=== PATIENT | male | born 1965 | race Caucasian/White ===

== ENCOUNTER 2017-03-31 08:50 | Emergency (ER) | payer BC, OTHER ==
[2017-03-31 09:10] VITALS: BP 169/97
--- NOTE | 2017-03-31 10:20 | UC ---
Abdominal Pain Male HPI - HPI Summary HPI Summary: abdominal pain x 1 day feels bloated, ate a lot last night, no fever, no chills, no n/v/d/c - History of Current Complaint Chief Complaint: UCAbdominalPain Stated Complaint: STOMACH ACHE Time Seen by Provider: 03/31/17 09:24 Hx Obtained From: Patient Onset/Duration: Gradual Onset, Lasting Days Severity Initially: Moderate Severity Currently: Moderate Location: Diffuse Radiates: No Character: Aching, Cramping Alleviating Factor(s): Nothing Associated Signs And Symptoms: Negative: Fever, Cough, Chest Pain, Blood in Stool, Urinary Symptoms, Decreased Appetite, Nausea, Vomiting, Diarrhea, Penile Discharge - Allergies/Home Medications Allergies/Adverse Reactions: Allergies Allergy/AdvReac Type Severity Reaction Status Date / Time No Known Allergies Allergy Verified 03/31/17 09:04 Home Medications: Home Medications Calcium Carbonate CHEW TAB* [Tums*] 2,000 mg PO ONCE PRN 03/31/17 [History Confirmed 03/31/17] Senna TAB* [Senokot TAB*] 2 tab PO ONCE PRN 03/31/17 [History Confirmed 03/31/17 ] PMH/Surg Hx/FS Hx/Imm Hx Previously Healthy: Yes - Surgical History Surgical History: None - Family History Known Family History: Negative: Diabetes - Social History Alcohol Use: Occasionally Substance Use Type: None Smoking Status (MU): Former Smoker When Did the Patient Quit Smoking/Using Tobacco: 2000 Review of Systems Constitutional: Negative Skin: Negative Eyes: Negative ENT: Negative Respiratory: Negative Gastrointestinal: Abdominal Pain Is Patient Immunocompromised?: No All Other Systems Reviewed And Are Negative: Yes Physical Exam Triage Information Reviewed: Yes Appearance: Well-Appearing, No Pain Distress, Well-Nourished Vital Signs: Initial Vital Signs Temp 97.4 F 03/31/17 09:06 Pulse 82 03/31/17 09:06 Resp 16 03/31/17 09:06 BP 169/97 03/31/17 09:06 Pulse Ox 98 03/31/17 09:06 Vital Signs Reviewed: Yes Eyes: Positive: Conjunctiva Clear ENT: Positive: Normal ENT inspection, Hearing grossly normal, Pharynx normal Neck: Positive: Supple, Nontender, No Lymphadenopathy Respiratory: Positive: Chest non-tender, Lungs clear, Normal breath sounds Cardiovascular: Positive: RRR, No Murmur, Pulses Normal Abdomen Description: Positive: Soft, Other: - diffuse tenderness. Negative: CVA Tenderness (R), CVA Tenderness (L), Distended, Guarding Musculoskeletal: Positive: Strength Intact Neurological: Positive: Alert Skin Exam: Normal Abd Pain Male Course/Dx - Differential Dx/Clinical Impression Provider Diagnoses: gastritis Discharge - Discharge Plan Condition: Stable Disposition: HOME Patient Education Materials: Acute Abdominal Pain (ED), Gas and Bloating (ED) Referrals: Non Staff,Doctor [Primary Care Provider] - 5 Days Additional Instructions: follow up with your pcp in 5 days j go to ED if the pain is getting worse
== END 2017-03-31 10:33 | disposition home or self-care (01) ==
LOC: UCCORT 08:50
DX: K29.70 Gastritis, unspecified, without bleeding (principal); Z87.891 Personal history of nicotine dependence
CPT/HCPCS: 81003; 93005; 99211; G0463

== ENCOUNTER 2017-09-16 16:47 | Emergency (ER) | payer BC ==
[2017-09-16 17:43] VITALS: BP 134/89
--- NOTE | 2017-09-16 17:47 | ED ---
Abdominal Pain/Male - HPI Summary HPI Summary: Pt presents with 2-3 weeks progressive nausea, vomiting and diarrhea. Pt states has abdominal cramping and bloating. Pt states over last several days has noted blood in emesis. non bilous. Pt states also notes stool have progressively become mucous with blood streaking. Pt states has had 20 pound weight loss, abd achiness and back pain. No cp,sob/. Pt has taken tums and pepto without relief. no sick contact. no h/o similar. no travel. no abx Pt's sister with crohn's dx pt does use THC -no change in supplier, no concern for contamination pt had normal colonoscopy 3 years ago pt with no PCP - History of Current Complaint Chief Complaint: UCAbdominalPain Stated Complaint: ABD PAIN/NAUSEA Time Seen by Provider: 09/16/17 17:33 Onset/Duration: Lasting Weeks Timing: Constant Severity Initially: Moderate Severity Currently: Moderate Pain Intensity: 6 - Allergies/Home Medications Allergies/Adverse Reactions: Allergies Allergy/AdvReac Type Severity Reaction Status Date / Time No Known Allergies Allergy Verified 09/16/17 17:28 Home Medications: Home Medications NK [No Home Medications Reported] 09/16/17 [History Confirmed 09/16/17] PMH/Surg Hx/FS Hx/Imm Hx Previously Healthy: Yes Infectious Disease History: No Infectious Disease History: Denies: Traveled Outside the [place] in Last 30 Days - Family History Known Family History: Positive: Hypertension Negative: Diabetes - Social History Occupation: Employed Full-time Lives: With Family Alcohol Use: Occasionally Substance Use Type: Reports: Marijuana Substance Use Comment - Amount & Last Used: OCCASIONALLY- 3 DAYS AGO Smoking Status (MU): Former Smoker Review of Systems Positive: Chills, Fatigue Negative: Chest Pain Negative: Shortness Of Breath Positive: Abdominal Pain, Vomiting, Diarrhea, Nausea All Other Systems Reviewed And Are Negative: Yes Physical Exam Triage Information Reviewed: Yes Vital Signs On Initial Exam: Initial Vitals Temp Pulse Resp BP Pulse Ox 97.5 F 64 16 134/89 98 09/16/17 17:28 09/16/17 17:28 09/16/17 17:28 09/16/17 17:28 09/16/17 17:28 Vital Signs Reviewed: Yes Appearance: Positive: Well-Appearing, No Pain Distress, Well-Nourished Skin: Positive: Warm, Skin Color Reflects Adequate Perfusion, Dry Head/Face: Positive: Normal Head/Face Inspection Eyes: Positive: Normal, EOMI, NAZIA ENT: Positive: Pharyngeal erythema, TMs normal Neck: Positive: Supple, Nontender, No Lymphadenopathy Respiratory/Lung Sounds: Positive: Clear to Auscultation, Breath Sounds Present Cardiovascular: Positive: Normal, RRR. Negative: Murmur Abdomen Description: Positive: CVA Tenderness (R), CVA Tenderness (L). Negative : Nontender - + TTP LLQ, left mid mild b/l CVA, Distended, Guarding Bowel Sounds: Positive: Hypoactive Musculoskeletal: Positive: Normal Neurological: Positive: Normal, Sensory/Motor Intact, Alert, Oriented to Person Place, Time Psychiatric: Positive: Normal AVPU Assessment: Alert Diagnostics - Vital Signs Vital Signs Temp Pulse Resp BP Pulse Ox 09/16/17 17:28 97.5 F 64 16 134/89 98 - Laboratory Lab Statement: Any lab studies that have been ordered have been reviewed, and results considered in the medical decision making process. Abdominal Pain Fem Course/Dx - Course Course Of Treatment: pt with progressive n/v/d now with blood. pt with significant weight loss. sister with crohn's. Pt with tender LLQ , left mid abd. pt without PCP. recommend pt to ED for further eval likely labs +/- imaging. Pt aware may not get definitve dx today. pt will go to [facility] – [place]. pt stable - okay for transfer by car. pt discharge with ED referral. Charge called by RN - Diagnoses Provider Diagnoses: Abdominal pain, Diarrhea, Vomiting Discharge - Sign-Out/Discharge Documenting (check all that apply): Discharge - Discharge Plan Condition: Stable Disposition: HOME Discharge Disposition Comment: ED by POV - referral Patient Education Materials: Acute Abdominal Pain (ED) Referrals: Non Staff,Doctor [Primary Care Provider] - Additional Instructions: The doctor that evaluated you today recommends you go directly to the emergency department for further evaluation and treatment of your nausea, vomiting and weight loss. this evaluation may include laboratory tests and imaging. It is recommended you do directly there - they are expecting you [place] [address] [place] [id number] - Billing Disposition and Condition Condition: STABLE Disposition: HOME
== END 2017-09-16 18:16 | disposition home or self-care (01) ==
LOC: UCCORT 16:47
DX: R10.32 Left lower quadrant pain (principal); R19.7 Diarrhea, unspecified; R11.2 Nausea with vomiting, unspecified; Z87.891 Personal history of nicotine dependence
CPT/HCPCS: 93005; 99212; G0463

== ENCOUNTER 2017-09-16 19:00 | Emergency (ER) | payer BC ==
[2017-09-16] MEDS ORDERED: NS 0.9% 1000 ML* 1,000 ML IV ONE (20:08)
[2017-09-16] MEDS ORDERED: Morphine INJ* 4 MG/ML 1 ML SYRINGE (NEW SYRINGE VERSION) IV ONE (20:09)
[2017-09-16] MEDS ORDERED: Metoclopramide IV* 5 MG/ML 2 ML VIAL IV SLOW PU ONE (20:09)
[2017-09-16] MEDS ORDERED: Morphine INJ* 2 MG/ML 1 ML CARPUJECT ONE (20:30)
[2017-09-16 20:37] LABS: ABS Basophils 0 10^3/ul (0-0.2); ABS Eosinophils 0.1 10^3/ul (0-0.6); ABS Monocytes 0.7 10^3/ul (0-0.8); ABS Neutrophils 4.3 10^3/ul (1.5-7.7); ABS Nucleated RBC 0 10^3/ul; Eosinophil % 0.9 % (0-6); Hematocrit 42 % (42-52); Hemoglobin 15.1 g/dl (14.0-18.0); Lymphocyte % 28.2 % (25-47); Mean Corpuscular HGB Conc 36 g/dl (31-36); Mean Corpuscular Hemoglobin 30 pg (27-31); Mean Corpuscular Volume 83 fL (80-94); Mean Platelet Volume 7.1 um3 (7.4-10.4); Nucleated Red Blood Cells % 0.1; Platelet Count 249 10^3/ul (150-450); Red Blood Count 5.07 10^6/ul (4.0-5.4); Red Cell Distribution Width 14 % (10.5-15)
[2017-09-16 20:46] LABS: INR 1.01 (0.77-1.02)
[2017-09-16 20:54] LABS: EGFR Non-African American 87.8 (>60)
[2017-09-16] MEDS ORDERED: Iohexol 300* (CONTRAST) 10 ML SDV IV ONE (21:11)
--- NOTE | 2017-09-16 22:00 | RAD ---
INDICATION: Abdominal pain and diarrhea for one week. COMPARISON: No relevant prior exams available on the [facility] PACS for comparison. TECHNIQUE: Multidetector CT images were obtained from the lung bases to the ischial tuberosities with 137 mL Omnipaque 300 IV and oral contrast. Multiplanar reformation. REPORT: Unremarkable visualized inferior thorax. The liver, gallbladder, pancreas, and spleen are unremarkable. Small splenule adjacent to the inferior anterior lateral margin of the dominant spleen. No CT abnormality of the upper GI or small bowel. Unremarkable top normal diameter medially extending appendix. Negative for periappendiceal inflammatory change. Mild diverticulosis of the colon without findings of acute diverticulitis. Negative for ascites, free air, or significant hernias. Normal adrenal glands. Symmetric nephrograms and pyelograms. Tiny hypodensity at the lower pole cortex of the RIGHT kidney while too small to characterize is most consistent with a benign cyst without concern. Negative for suspicious focal renal lesions or hydronephrosis. Unremarkable nondilated ureters and distended urinary bladder. Unremarkable seminal vesicles. Coarse calcifications at the prostate. Upper normal mesenteric lymph nodes measuring up to 0.7 cm short axis diameter. Negative for lymphadenopathy. Normal diameter abdominal aorta and common iliac arteries with minimal atherosclerotic plaque. Physiologic distention of the IVC. Schmorl node endplate herniation at the superior endplate of L3. Negative for suspicious focal osseous lesions or fractures. IMPRESSION: 1. Normal appendix documented. 2. Mild diverticulosis of the colon without findings of acute diverticulitis. 3. Distended urinary bladder; correlate clinically for urinary retention. Negative for hydronephrosis.
[2017-09-16 22:02] LABS: Urine Appearance Clear; Urine Blood Negative (Negative); Urine Color Yellow; Urine Ketones Negative (Negative); Urine Protein Negative (Negative); Urine Specific Gravity 1.028 (1.010-1.030); Urine Urobilinogen Negative (Negative)
[2017-09-16] MEDS ORDERED: Potassium Chlor TAB* 20 MEQ TAB.ER PO ONE (22:11)
[2017-09-16 22:58] VITALS: BP 143/93
--- NOTE | 2017-09-16 23:18 | ED ---
Dana Steele Nilda, scribed for Lyly Perez MD on 09/16/17 at 2026 . Abdominal Pain/Male - HPI Summary HPI Summary: This patient is a 51 year old M presenting to [facility] with a chief complaint of constant abd pain with bloody diarrhea and vomiting since last week. The patient rates the pain 4/10 in severity. Symptoms aggravated and alleviated by nothing. Patient reports a considerable amount of blood in stool, and states pain originated in bilat lower back but has now moved to lower abd. Triage note states pt denies urinary symptoms. - History of Current Complaint Chief Complaint: EDAbdPain Stated Complaint: ABD PAIN Time Seen by Provider: 09/16/17 19:53 Hx Obtained From: Patient, Medical Records Onset/Duration: Sudden Onset, Lasting Weeks, Still Present Timing: Constant Severity Currently: Moderate Pain Intensity: 4 Pain Scale Used: 0-10 Numeric Location: Discrete At: RLQ, Discrete At: LLQ Radiates: No Aggravating Factor(s): Nothing Alleviating Factor(s): Nothing Associated Signs And Symptoms: Positive: Other - bloody diarrhea and vomiting; negative urinary symptoms - Allergies/Home Medications Allergies/Adverse Reactions: Allergies Allergy/AdvReac Type Severity Reaction Status Date / Time No Known Allergies Allergy Verified 09/16/17 19:04 PMH/Surg Hx/FS Hx/Imm Hx Sensory History: Denies: Hx Legally Blind EENT History: Denies: Hx Deafness Infectious Disease History: No Infectious Disease History: Denies: Traveled Outside the [place] in Last 30 Days - Family History Known Family History: Positive: Hypertension Negative: Diabetes - Social History Alcohol Use: Occasionally Substance Use Type: Reports: Marijuana Substance Use Comment - Amount & Last Used: OCCASIONALLY- 3 DAYS AGO Smoking Status (MU): Former Smoker Review of Systems Positive: Abdominal Pain, Vomiting, Diarrhea - with blood Positive: other - negative urinary symptoms Positive: Other - lower back pain (resolved) All Other Systems Reviewed And Are Negative: Yes Physical Exam - Summary Physical Exam Summary: VITAL SIGNS: Reviewed. GENERAL: Patient is a well-developed and nourished male who is lying comfortable in the stretcher. Patient is not in any acute respiratory distress. HEAD AND FACE: No signs of trauma. No ecchymosis, hematomas or skull depressions. No sinus tenderness. EYES: PERRLA, EOMI x 2, No injected conjunctiva, no nystagmus. EARS: Hearing grossly intact. Ear canals and tympanic membranes are within normal limits. MOUTH: Oropharynx within normal limits. NECK: Supple, trachea is midline, no adenopathy, no JVD, no carotid bruit, no c- spine tenderness, neck with full ROM. CHEST: Symmetric, no tenderness at palpation LUNGS: Clear to auscultation bilaterally. No wheezing or crackles. CVS: Regular rate and rhythm, S1 and S2 present, no murmurs or gallops appreciated. ABDOMEN: Soft, non-tender. No signs of distention. No rebound no guarding, and no masses palpated. Bowel sounds are normal. EXTREMITIES: FROM in all major joints, no edema, no cyanosis or clubbing. NEURO: Alert and oriented x 3. No acute neurological deficits. Speech is normal and follows commands. SKIN: Dry and warm Triage Information Reviewed: Yes Vital Signs On Initial Exam: Initial Vitals Temp Pulse Resp BP Pulse Ox 97.3 F 85 16 150/90 100 09/16/17 19:01 09/16/17 19:01 09/16/17 19:01 09/16/17 19:01 09/16/17 19:01 Vital Signs Reviewed: Yes Diagnostics - Vital Signs Vital Signs Temp Pulse Resp BP Pulse Ox 09/16/17 19:01 97.3 F 85 16 150/90 100 - Laboratory Result Diagrams: 09/16/17 20:12 09/16/17 20:12 Lab Statement: Any lab studies that have been ordered have been reviewed, and results considered in the medical decision making process. - CT Abd/Pel CT Interpretation Completed By: Radiologist - CT A/P, per radiologist, reveals 1. Normal appendix documented. 2. Mild diverticulosis of the colon without findings of acute diverticulitis. 3. Distended urinary bladder; correlate clinically for urinary retention. Negative for hydronephrosis. Dr. Perez has reviewed this radiology report. Re-Evaluation - Re-Evaluation First Eval Re-Evaluation Time: 22:30 Comment: Pt feel better. Reviewed labs and imaging with pt. Reviwed D/C plan. Pt agreeable to D/C. Abdominal Pain Fem Course/Dx - Course Assessment/Plan: Pt is a 51 y/o c/o abd pain. Unremarkable exam. Pt was found to have slight elevation of lipase. I discussed labs with pt. Pt has mild case of pancreatitis. I advised him to stay away from fats. Pt was not vomiting. He was D/C home and will follow up with PCP and GI. Dx mild pancreatitis. - Diagnoses Provider Diagnoses: Pancreatitis Discharge - Sign-Out/Discharge Documenting (check all that apply): Discharge - home - Discharge Plan Condition: Stable Disposition: HOME Patient Education Materials: Pancreatitis (ED) Referrals: [facility] [place] PHYSICIAN REFERRAL [Outside] - 2 Days Nelson Naik MD [Medical Doctor] - 2 Days Additional Instructions: RETURN TO THE EMERGENCY DEPARTMENT FOR CHANGING OR WORSENING SYMPTOMS. The documentation as recorded by the Dana boo Nilda accurately reflects the service I personally performed and the decisions made by me, Lyly Perez MD.
== END 2017-09-16 22:58 | disposition home or self-care (01) ==
LOC: ED 19:00
DX: K85.90 Acute pancreatitis without necrosis or infection, unspecified (principal); R19.7 Diarrhea, unspecified; R11.10 Vomiting, unspecified; Z87.891 Personal history of nicotine dependence
CPT/HCPCS: 36415; 74177; 80053; 81003; 82150; 83690; 85025; 85610; 85730; 86140; 99283; A9270-GY; J2270; J2765; Q9967